=== PATIENT | male | born 2000 | race Caucasian/White ===

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

== ENCOUNTER 2022-01-15 09:32 | Emergency (ER) | payer OTHER ==
[~2022-01-15] VITALS: Ht 185.4 cm; Wt 97.5 kg
[~2022-01-15 09:32] MED LIST: IBUP-2213 PO
[2022-01-15 10:07] VITALS: BP 147/74
[2022-01-15] MEDS ORDERED: TETRACAINE HCL/PF 0.5% OPTH 4 ML BTL OP ONE (11:15)
[2022-01-15] MEDS ORDERED: FLUORESCEIN OPTH STRIP 1 MG OP ONE (11:15)
--- NOTE | 2022-01-15 11:44 | NUR ---
PT COULD NOT READ LINE 1 WITH BOTH EYES OPEN, L CLOSED AND/ OR R CLOSED.
[2022-01-15] MEDS ORDERED: ACYC-258 PO (11:59)
[2022-01-15] MEDS ORDERED: PRED20TA5 PO (11:59)
[2022-01-15] MEDS ORDERED: BACTO TP (12:02)
--- NOTE | 2022-01-15 12:15 | NUR ---
22 y/o male, pt presents t ed with c/o right eye pain, rash to forehead for 4 days. pt states rash initially started on his forehead and then following day spread to his right eye. pt also reports associated right eye redness, tearing, discharge. pt was seen by pcp and given prescription for ibuprofen and bactrim and states rash has been getting worse. a&ox4, ambulates with steady gait. pmh: denies nka
[2022-01-15 12:24] VITALS: BP 147/74
--- NOTE | 2022-01-15 12:24 | NUR ---
Patient discharged with v/s stable. Written and verbal after care instructions given and explained. Patient alert, oriented and verbalized understanding of instructions. Ambulatory with steady gait. All questions addressed prior to discharge. ID band removed. Patient advised to follow up with PMD. Rx of zovirax, prednisone given. Patient educated on indication of medication including possible reaction and side effects. Opportunity to ask questions provided and answered.
== END 2022-01-15 12:24 | disposition home or self-care (01) ==
LOC: MED 09:32
DX: H57.11 Ocular pain, right eye (principal); R21 Rash and other nonspecific skin eruption
CPT/HCPCS: 99283